=== PATIENT | male | born 1965 | race Caucasian/White ===

== ENCOUNTER → 2023-11-25 06:22 | Day surgery (SDC) | payer OTHER, SELFPAY | LOC: GI 06:22 | PROVIDERS: ATTENDING PHYSICIAN Internal Medicine Gastroenterology | DX: Z12.11 Encounter for screening for malignant neoplasm of colon (principal); K57.30 Diverticulosis of large intestine without perforation or abscess without bleeding; K22.70 Barrett's esophagus without dysplasia; K44.9 Diaphragmatic hernia without obstruction or gangrene; R12 Heartburn; Z80.0 Family history of malignant neoplasm of digestive organs; Z83.719 Family history of colon polyps, unspecified | CPT/HCPCS: 43239; G0105; 88305 ==

== ENCOUNTER 2024-10-20 16:07 | Inpatient (IN) | payer OTHER, SELFPAY ==
[2024-10-20] VITALS (9 sets, daily range): BP systolic 100–128; BP diastolic 57–83; BMI 35.5; BMI 34.9
[2024-10-20 12:27] LABS: % Basophils 0.5 % (0-2); % Immature Granulocytes 0.4 % (0-0.5); % Lymphocytes 17.3 % (20.5-51.1); % Monocytes 13.2 % (1.7-9.3); % Neutrophils 68.6 % (42.2-75.2); Absolute Lymphocytes 1.3 10^3/uL (1.2-3.4); Hematocrit 46.4 % (39.0-52.0); Hemoglobin 16.3 g/dL (13.0-18.0); Mean Corp Hgb Conc. 35.1 g/dL (33.0-37.0); Mean Corpuscular Hgb 29.4 pg (27.0-31.0); Mean Corpuscular Volume 83.6 fL (80.0-94.0); Nucleated Red Blood Cells % 0 % (-); Platelet Count 244 10^3/uL (130-400); Red Blood Cell Count 5.55 10^6/uL (4.70-6.10); Red Cell Dist. Width 12.7 % (11.5-14.5); White Blood Cell Count 7.3 10^3/uL (4.8-10.8)
[2024-10-20 12:38] LABS: ALT (SGPT) 47 U/L (0-50); AST (SGOT) 47 U/L (17-59); Albumin 4.4 g/dl (3.5-5.0); Alkaline Phosphatase 60 U/L (38-126); Blood Urea Nitrogen 42 mg/dl (9-20); Calcium 9.3 mg/dl (8.4-10.2); Carbon Dioxide 24 mmol/L (22-30); Chloride 94 mmol/L (98-107); Glucose 120 mg/dl (70-99); Lipase 109 U/L (23-300); Potassium 3.7 mmol/L (3.5-5.1); Sodium 133 mmol/L (135-145); Total Bilirubin 1.7 mg/dl (0.2-1.3); Total Protein 7.7 g/dl (6.3-8.2); eGFR 32.31
--- NOTE | 2024-10-20 13:22 | ED.GENMED ---
History of Present Illness
General
Chief Complaint: Abdominal Symptoms
Source: patient
Exam Limitations: none
Time Seen by Provider: 10/20/24 13:06
History of Present Illness
History of Present Illness:
59yoM with a history of hypertension and Miller's esophagus presenting for evaluation of flu-like symptoms. Symptoms began 3 days ago. He reports chills, a head cold, and diarrhea. He took a home COVID test at symptom onset which was faintly
positive. He called his PCP the next day and was started on Paxlovid. He reports diarrhea every 10-15 minutes up until this morning. Now diarrhea seems to be improving. He also was experiencing some abdominal discomfort in his RLQ which has since
improved. He feels very dehydrated and has not been eating much. Urination has been normal. He denies any fevers, chest pain, shortness of breath, vomiting. No recent travel or recent antibiotics.
Past History
Past History
ED Past Medical History: Other
ED Past Surgical History: Negative Cardiac
Social History
Tobacco: Non-smoker
Alcohol: Occasional
Drug: None
Personal:
Living: other (With girlfriend)
Employment: Employed
Family History
Family History: CAD and Cancer
Phy Exam
General Physical Exam
General Presentation: well appearing and no apparent distress
General age: appears stated age
General Skin: warm and dry
General Habitus: normal
General Mental: alert
General Hydration: appears well hydrated
ENT Exam
ENT Exam: normocephalic
Cardiovascular Exam
Cardiovascular Exam: regular rate/rhythm and no murmur
Pulmonary Exam
Pulmonary Exam: lungs clear, no respiratory distress, no rales, no crackles, no rhonchi and no wheezing
Gastrointestinal Exam
Gastrointestinal Exam: soft, non distended and other (Minimal tenderness in RLQ. Abdomen soft, non-distended. No rebound or guarding. )
Neurological Exam
Neurological Exam: alert
[place] Coma Scale
Eye Opening: Spontaneous
Verbal Response: Oriented
Motor Response: Obeys Commands
GCS Total Score: 15
Skin Exam
Skin Exam: normal color and warm/dry
Psychiatric Exam
Psychiatric Exam: normal mood/affect
Course
Orders/Labs/Results
Orders:
Orders
10/20/24 12:13
Complete Blood Count/With Diff Urgent
Comprehensive Metabolic Panel Urgent
Lipase Urgent
Magnesium Urgent
Comment: ADD ON
10/20/24 13:10
Add On- LAB Urgent
Tests Added?: magnesium
10/20/24 13:19
CDIFF [C difficile Antigen & Toxins] Urgent
[place] Source: Feces/Stool
Specimen Description:
Norovirus by PCR Urgent
[place] Source: Feces/Stool
Specimen Description:
Stool Culture Urgent
[place] Source: Feces/Stool
Specimen Description:
10/20/24 13:20
CT Abd/pel Without Iv Or Oral Urgent
Comment:
Reason For Exam: RLQ pain, diarrhea
Urinalysis Reflex To Culture Urgent
0.9% Sodium Chloride 1000 ml [Nss] 1,000 ml IV BOLUS
10/20/24 13:46
COVID-19 Antigen Urgent
Source: Nasal Swab
Influenza A+B Rapid Molecular Urgent
[place] Source: Nasal Swab
Specimen Description:
Abnormal Lab Results
10/20/24
12:13
Absolute Monos (auto) 1.0 H 10^3/uL
(0.1-0.6)
Lymphocytes % 17.3 L %
(20.5-51.1)
Monocytes % 13.2 H %
(1.7-9.3)
Sodium 133 L mmol/L
(135-145)
Chloride 94 L mmol/L
(98-107)
BUN 42 H mg/dl
(9-20)
Creatinine 2.3 H mg/dL
(0.7-1.3)
Glucose 120 H mg/dl
(70-99)
Total Bilirubin 1.7 H mg/dl
(0.2-1.3)
10/20/24 12:13
10/20/24 12:13
Vital Signs
Initial and Last Documented VS:
Initial Vital Signs
Temp Pulse Resp BP Pulse Ox
98.6 F 97 16 128/83 99
10/20/24 12:07 10/20/24 12:07 10/20/24 12:07 10/20/24 12:07 10/20/24 12:07
Last Documented Vital Signs
Temp Pulse Resp BP Pulse Ox
97.8 F 80 19 127/70 95
10/20/24 13:15 10/20/24 14:15 10/20/24 14:15 10/20/24 14:00 10/20/24 14:15
MDM/Problems Addressed
Differential Diagnosis Includes:
59yoM here with flu-like symptoms x 3 days. C/o diarrhea, decreased appetite, chills, head cold. Home COVID test positive, currently on Paxlovid. Feels dehydrated. He is afebrile and hemodynamically stable. Oxygen saturation 99% on room air. He is
well appearing in no distress. Differential diagnosis includes but is not limited to: COVID, influenza, other viral illness, dehydration, PARMJIT
Initial ED plan: Abdominal labs obtained in triage. Creatinine 2.3, which is up from 0.8 in 2021. Mild hyponatremia and hypochloremia noted. Magnesium, COVID/flu testing, stool studies, UA, and CT abdomen without contrast added. IV fluid bolus.
*Critical Care Note
Total Time (30-74mins, 75-104mins- exclusive of procedures): Not Applicable
Update Note
Update Note:
COVID test negative here. CT shows findings highly suggestive of distal ileitis and colitis, mostly likely infectious. Appendix appears normal. Stool studies pending. Will admit for PARMJIT.
ED Attending Note
-
Portions of this chart may have been created with voice recognition software.� Occasional wrong word or��sound alike� substitutions may have occurred due to the inherent limitations of voice recognition software.
Discharge Plan
Departure
Patient Disposition: Admit
Date of Disposition: 10/20/24
Time of Disposition: 14:40
Presentation/result/management discussed w/ accepting MD/DO: Hospitalist
Discharge Problem:
Acute kidney injury, Acute diarrhea, Colitis
Prescriptions:
No Action
lisinopril 20 mg tablet
20 mg PO DAILY
hydrochlorothiazide 25 mg tablet
25 mg PO DAILY
Paxlovid 300 mg (150 mg x 2)-100 mg tablets,dose pack
3 ea PO BID
omeprazole 20 mg Tablet,Delayed Release (Dr/Ec)
20 mg PO DAILY
Heart Chewables
1 chewable tab PO DAILY
Referrals:
Jabier Guillermo MD [Family Provider] -
Interventions
Interventions:
*Risk Screen - Suicide Last Done: 10/20/24 13:28
*General Assessment Last Done: 10/20/24 13:20
*Neglect/Abuse Screening Last Done: 10/20/24 13:22
*ED COVID-19 Vaccine History Last Done: 10/20/24 13:19
RJ-Iijfqu-Rhgfatnmey Assessment Last Done: 10/20/24 13:24
Discharge Date and Time
Print Language: SERBIAN
[2024-10-20] MEDS: NSS 1000 IV ×2 (13:33→17:28)
[2024-10-20 14:24] LABS: COVID-19 Antigen Negative (Negative)
--- NOTE | 2024-10-20 15:17 | HPS.HSE ---
Family Physician
-
Family Physician: Jabier Guillermo
Chief Complaint
-
Diarrhea
History of Present Illness
Patient is a 59 y/o male past medical history of hypertension and Miller's esophagus who presents with diarrhea. Patient reports about a month ago he was sick with a GI bug that caused a lot of vomiting. He notes he was better for a few weeks but
about 3 days ago developed recurrent GI symtpoms which was mostly diarrhea this time. He reports having diarrhea about every 10-15 min. He has been tolerating liquids but states he feels dehydrated. He reports poor appetite. He reports some
chills, but denies recorded fevers.
Medical History
Past Medical History
Past Medical History: Reports Other
Additional Past Medical History:
Essential Hypertension
Miller's Esophagus
Past Surgical History: Reports None
Social History
Tobacco: Non-smoker
Alcohol: Other (Rare)
Family History
Family History: Other (Mother: Colon [place])
Allergies / Home Medications
Allergies reflects when Allergies were last updated in [facility].
Home Medications with original date entered in [facility]
Allergy/Medication List:
Allergies
Allergy/AdvReac Type Severity Reaction Status Date / Time
No Known Allergies Allergy Verified 10/20/24 12:11
Home Medications
Heart Chewables 1 chewable tab PO DAILY 10/20/24
hydrochlorothiazide 25 mg tablet 25 mg PO DAILY 10/20/24
lisinopril 20 mg tablet 20 mg PO DAILY 10/20/24
nirmatrelvir 300 mg (150 mg x2)-ritonavir 100 mg tablet,dose pack (Paxlovid) 3 ea PO BID 10/20/24
omeprazole 20 mg tablet,delayed release 20 mg PO DAILY 10/20/24
Review of Systems
-
A 12 point ROS was completed and negative except as noted: Yes
Constitutional: Reports Chills; Denies Fever
Respiratory: Denies Cough or Trouble Breathing
Cardiac: Denies Chest Pain or Palpitations
Abdomen/GI: Reports See HPI
Physical Exam
Vital Signs
Vital Signs
Temp Pulse Resp BP Pulse Ox
97.8 F 80 19 127/70 95
10/20/24 13:15 10/20/24 14:15 10/20/24 14:15 10/20/24 14:00 10/20/24 14:15
Physical Exam
General: Comfortable and Conversant
HEENT: Anicteric and Moist mucous membranes
Respiratory: Clear and Non Labored Respirations
Cardiac: S1/S2 and Regular Rhythm
GI: Soft and Other (Mild discomfort on palpation of RLQ)
Rectal: Deferred by Provider
Musculoskeletal: No Clubbing, No Cyanosis and No Edema
Skin: Warm and Dry
Neuro: Awake, Alert, Oriented and Nonfocal/grossly intact
Psych: Calm
Laboratory Results
-
10/20/24 12:13
10/20/24 12:13
Laboratory Results
Total Bilirubin 1.7 mg/dl (0.2-1.3) H 10/20/24 12:13
AST 47 U/L (17-59) 10/20/24 12:13
ALT 47 U/L (0-50) 10/20/24 12:13
Alkaline Phosphatase 60 U/L (38-126) 10/20/24 12:13
Lipase 109 U/L (23-300) 10/20/24 12:13
Data Reviewed
-
CT Scan: Report Reviewed by me
Lab Data: Labs Reviewed by me
Impression/Plan
-
Acute Kidney Injury
-Hold lisinopril and HCTZ
-Continue IVFs
-Recheck labs in AM
Distal Ileitis / Colitis, suspect infectious mostly likely viral
-Check Norovirus and Stool Cultures
-Allow clears liquids
Positive Home COVID Test
-Patient placed on Paxlovid via PCP
-Negative COVID today
-Hold Paxlovid in setting of PARMJIT
Essential Hypertension
-Lisinopril and HCTZ on hold
-Monitor blood pressure
Miller's Esophagus
-Continue Protonix
DVT proph: SC Heparin
Code Status: Full Code
--- NOTE | 2024-10-20 16:07 | W.PN.UPDATE ---
Update Note
Progress Note Update
This is an addendum to the H&P written by Jessenia Espinoza on 10/20/2024.� Patient seen and examined independently with PA.
59-year-old male past medical history of Miller's esophagus, hypertension, presenting with diarrhea starting 3 days ago.
He had vomiting a month ago which resolved.� He has been having lingering cough for a month.� No fevers.
Home COVID test 3 days ago was positive.� He was started on Paxlovid 2 days ago.
COVID at the current time is negative.
Labs show PARMJIT with creatinine of 2.3.� CT abdomen pelvis shows distal ileitis/colitis most likely infectious.
Clear liquid diet.� Check stool studies.� IV fluids.� Hold Paxlovid, lisinopril, hydrochlorothiazide due to PARMJIT.� Hold off antibiotics at this time due to the lack of sepsis or fever.� Advance diet as tolerated.
It is possible the patient is COVID however COVID test may be negative due to suppression with Paxlovid.� However he is not hypoxic.
[2024-10-20 16:25] LABS: Urine Albumin 2+ (Neg - Trace); Urine Bilirubin Negative (Negative); Urine Character Clear (Clear); Urine Color Amber; Urine Glucose Negative (Negative); Urine Ketone Negative (Negative); Urine Leukocyte Negative (Negative); Urine Nitrite Negative (Negative); Urine Occult Blood 3+ (Negative); Urine Urobilinogen Negative (Neg - 1+)
[2024-10-20 17:41] LABS: Urine Squamous Cell 0-2 /LPF (Few)
[2024-10-20 17:42] LABS: Urine White Cell 0-2 /HPF (0-5)
[2024-10-20] MEDS: HEPARIN 5000 UNITS SC ×2 (18:34→23:26)
[2024-10-21] MEDS: NSS 1000 IV ×3 (02:45→21:49)
[2024-10-21 07:30] VITALS: BP 92/50
[2024-10-21 08:15] LABS: Hematocrit 40.7 % (39.0-52.0); Hemoglobin 14.2 g/dL (13.0-18.0); Mean Corp Hgb Conc. 34.9 g/dL (33.0-37.0); Mean Corpuscular Hgb 29.5 pg (27.0-31.0); Mean Corpuscular Volume 84.4 fL (80.0-94.0); Mean Platelet Volume 10.1 fL (7.4-10.4); Platelet Count 215 10^3/uL (130-400); Red Blood Cell Count 4.82 10^6/uL (4.70-6.10); Red Cell Dist. Width 12.6 % (11.5-14.5); White Blood Cell Count 5.7 10^3/uL (4.8-10.8)
[2024-10-21 08:32] LABS: Blood Urea Nitrogen 33 mg/dl (9-20); Calcium 8.6 mg/dl (8.4-10.2); Carbon Dioxide 24 mmol/L (22-30); Chloride 97 mmol/L (98-107); Estimated Creatinine Clearance 66 ml/min; Glucose 92 mg/dl (70-99); Potassium 3.4 mmol/L (3.5-5.1); Sodium 134 mmol/L (135-145); eGFR 58.62
[2024-10-21] MEDS: PROTONIX 40 MG PO (09:04)
[2024-10-21] MEDS: HEPARIN 5000 UNITS SC ×3 (09:04→23:02)
[2024-10-21] MEDS: KCL 270 MEQ IV (09:05)
[2024-10-21 10:00] LABS: Procalcitonin 1.32 ng/ml (0.0-0.25)
--- NOTE | 2024-10-21 11:47 | W.PN.HOSP.TC ---
Today's Communication/Plan
-
monitor vital signs see plan
Follow stool studies
GI evaluation
Continue with clears for now
Fluids
Monitor creatinine
Assessment / Plan
Assessment / Plan
General: Comfortable and Conversant
HEENT: Anicteric and Moist mucous membranes
Respiratory: Clear and Non Labored Respirations
Cardiac: S1/S2 and Regular Rhythm
GI: Soft and Other (Mild discomfort on palpation of RLQ)
Musculoskeletal: No Edema
Neuro: Awake, Alert, Oriented and Nonfocal/grossly intact
Psych: Calm
Pain diarrhea likely secondary to distal ileitis/colitis,, suspect infectious however cannot rule out inflammatory
Norovirus, C. difficile negative
Check stool culture, stool WBC
No prior history of colitis per patient, no recent antibiotics use
GI evaluation
Acute Kidney Injury
-Hold lisinopril and HCTZ
-Continue IVFs
Continue to monitor
Hyponatremia
Monitor
Hypokalemia
replete
Positive Home COVID Test
-Patient placed on Paxlovid via PCP
-Negative COVID today
-Hold Paxlovid in setting of PARMJIT
Essential Hypertension
-Lisinopril and HCTZ on hold
-Monitor blood pressure
Miller's Esophagus
-Continue Protonix
DVT proph: SC Heparin
Code Status: Full Code
Anticipated Discharge: 24 - 48 hours
Subjective/Interval History
-
Date of Service: October 21, 2024
Denies pain
Objective Data
-
Labs:
Laboratory Results
10/21/24
06:57
WBC 5.7
Hgb 14.2
Hct 40.7
Plt Count 215
Sodium 134 L
Potassium 3.4 L
Chloride 97 L
Carbon Dioxide 24
BUN 33 H
Creatinine 1.4 H
Glucose 92
Calcium 8.6
Vital Signs:
Vital Signs
Temp Pulse Resp BP Pulse Ox
98.7 F 74 24 92/50 99
10/21/24 07:30 10/21/24 07:30 10/21/24 07:30 10/21/24 07:30 10/21/24 07:30
I&O
10/20/24 10/21/24 10/22/24
06:59 06:59 06:59
Intake Total 120 / 120
Balance 120 / 120
--- NOTE | 2024-10-21 12:04 | CM ---
Addendum entered by Yris Keita 10/21/24 12:07:
PCP: Dr Guillermo
Pharmacy: [facility]
Plan: home no needs anticipated.
Original Note:
Patient seen bedside.
IA completed.
Patient lives with significant other in a 2 story home.
Independent prior to admission, works and drives.
No hx VN
Denies home care needs at this time.
--- NOTE | 2024-10-21 14:59 | CON.GI ---
Addendum entered and electronically signed by Silva Davenport MD 10/21/24 15:31:
Elevated total bilirubin with other LFTs being in normal range.
Will check total and direct bilirubin tomorrow.
Original Note:
Consultation
-
Date/Time Consultation Requested: 10/21/24
Date/Time Consultation Performed: 10/21/2024
Requesting Provider:
Performing Provider:
Reason for Consultation: Diarrhea
Medical History
Chief Complaint / HPI
Chief Complaint: Diarrhea
History of Present Illness:
59-year-old male with history of hypertension, Miller's esophagus presenting with complaints of diarrhea As per patient, Friday evening, he started with some vague discomfort in the abdomen and nausea followed by diarrhea. He did not eat anything
unusual or outside. Had multiple episodes of nonbloody loose watery stool , with nocturnal episodes. Also reports having chills without fevers. Had headaches, tested for COVID and as per patient, it was positive and was treated with Paxlovid for
a day and a half. He continued to have diarrhea and was not feeling well and came to the emergency room. In the ER, he was noted to have acute renal insufficiency with a creatinine of 2.3,hyponatremia and hypokalemia. COVID test was negative. As
per patient, flu testing was negative as well. Stool for C. difficile and norovirus negative, cultures pending. CT scan of the abdomen and pelvis was done without contrast, there was evidence of distal ileitis and colitis from the cecum to the
left transverse colon. Fatty liver noted.
Prior to this episode, patient denies any abdominal pain, nausea or vomiting. He has history of long segment Miller's esophagus on endoscopy in January 2024, currently on pantoprazole daily without any acid reflux symptoms. No trouble swallowing.
Bowel pattern usually is 1 formed stool a day without any constipation, diarrhea, blood or black stool.
Colonoscopy 2023 showing diverticulosis. He has family history of colon cancer in his mother and brother and sister both with polyps.
Past Medical History
Past Medical History: HTN and Other (Miller's esophagus)
Past Surgical History: None
Social History
Tobacco: Non-Smoker
Alcohol: None
Family History
Family History: Other (Mother-colon cancer, brother and sister with colon polyps)
Allergies / Home Medications
Allergy/AdvReac Type Severity Reaction Status Date / Time
No Known Allergies Allergy Verified 10/20/24 12:11
�Medication �Instructions �Recorded
Heart Chewables 1 chewable tab PO DAILY Supplement 10/20/24
hydrochlorothiazide 25 mg tablet 25 mg PO DAILY Blood Pressure 10/20/24
lisinopril 20 mg tablet 20 mg PO DAILY Blood Pressure 10/20/24
nirmatrelvir 300 mg (150 mg 3 ea PO BID covid-19 10/20/24
x2)-ritonavir 100 mg tablet,dose
pack (Paxlovid)
omeprazole 20 mg tablet,delayed 20 mg PO DAILY Gastrointestinal 10/20/24
release Issue
Review of Systems
-
Neurological: Reports Headache
Vital Signs
Temp Pulse Resp BP Pulse Ox
98.7 F 74 24 92/50 99
10/21/24 07:30 10/21/24 07:30 10/21/24 07:30 10/21/24 07:30 10/21/24 08:48
Physical Exam
Exam
HEENT: Normocephalic
Cardiac: S1/S2 and Regular Rhythm
GI: Soft, Non Tender and Non Distended
Neuro: Awake, Oriented and AO x 3
Results
WBC 5.7 10^3/uL (4.8-10.8) 10/21/24 06:57
Hgb 14.2 g/dL (13.0-18.0) 10/21/24 06:57
Hct 40.7 % (39.0-52.0) 10/21/24 06:57
MCV 84.4 fL (80.0-94.0) 10/21/24 06:57
Plt Count 215 10^3/uL (130-400) 10/21/24 06:57
Absolute Neuts (auto) 5.0 10^3/uL (1.4-6.5) 10/20/24 12:13
Sodium 134 mmol/L (135-145) L 10/21/24 06:57
Potassium 3.4 mmol/L (3.5-5.1) L 10/21/24 06:57
Chloride 97 mmol/L (98-107) L 10/21/24 06:57
Carbon Dioxide 24 mmol/L (22-30) 10/21/24 06:57
BUN 33 mg/dl (9-20) H 10/21/24 06:57
Creatinine 1.4 mg/dL (0.7-1.3) H 10/21/24 06:57
Calcium 8.6 mg/dl (8.4-10.2) 10/21/24 06:57
Total Bilirubin 1.7 mg/dl (0.2-1.3) H 10/20/24 12:13
AST 47 U/L (17-59) 10/20/24 12:13
ALT 47 U/L (0-50) 10/20/24 12:13
Alkaline Phosphatase 60 U/L (38-126) 10/20/24 12:13
Lipase 109 U/L (23-300) 10/20/24 12:13
Diagnostic Image Results:
Prior GI Procedures:
EGD: 11/25/23 ()- Jennings-colored mucosa suspicious for long-segment Miller's esophagus. Biopsies showing IM.
- Medium-sized hiatal hernia.
Colonoscopy: 11/25/23-
Assessment / Plan
-
59-year-old male with history of hypertension, Miller's esophagus presenting with complaints of diarrhea, nonbloody and multiple episodes since Friday, no sick contacts or eating out, associated PARMJIT with hyponatremia and hypokalemia, CT scan of
the abdomen and pelvis with without contrast showing some terminal ileitis and right-sided colitis.
-Significant diarrhea causing electrolyte abnormalities and PARMJIT, stool studies negative for C. difficile and norovirus and cultures pending and CAT scan showing right-sided colitis
Rule out infectious colitis, less likely inflammatory given normal colonoscopy in November 2023 and no symptoms prior to this.
Will check stool white cells as well.
Conservative management, currently on clear liquid diet, advance as tolerated once diarrhea improves.
Monitor electrolytes and replete as needed.
Continue IV hydration, creatinine is improving.
If symptoms persist, then will consider colonoscopy.
-Long segment Miller's esophagus, continue Protonix 40 mg daily.
Follow-up with her as outpatient.
-
-
Thank you for consultation and allowing me to participate in the patient's care. Please call the marketing automation specialist GI physician during the after hours with any questions or concerns.
[2024-10-21 15:00] VITALS: BP 139/77
--- NOTE | 2024-10-21 18:10 | PTCARENOTE ---
assisted patient with hair wash in bathroom .
[2024-10-21 23:00] VITALS: BP 108/58
[2024-10-22] MEDS: NSS 1000 IV ×3 (06:00→22:23)
[2024-10-22 07:30] VITALS: BP 120/67
[2024-10-22 08:38] LABS: Hematocrit 38.1 % (39.0-52.0); Hemoglobin 13.4 g/dL (13.0-18.0); Mean Corp Hgb Conc. 35.2 g/dL (33.0-37.0); Mean Corpuscular Hgb 29.8 pg (27.0-31.0); Mean Corpuscular Volume 84.7 fL (80.0-94.0); Mean Platelet Volume 9.9 fL (7.4-10.4); Platelet Count 200 10^3/uL (130-400); Red Cell Dist. Width 12.8 % (11.5-14.5); White Blood Cell Count 4.7 10^3/uL (4.8-10.8)
[2024-10-22] MEDS: PROTONIX 40 MG PO (09:02)
[2024-10-22] MEDS: HEPARIN 5000 UNITS SC ×2 (09:02→17:34)
[2024-10-22 09:04] LABS: ALT (SGPT) 73 U/L (0-50); AST (SGOT) 66 U/L (17-59); Albumin 3.5 g/dl (3.5-5.0); Alkaline Phosphatase 55 U/L (38-126); Blood Urea Nitrogen 17 mg/dl (9-20); Calcium 8.4 mg/dl (8.4-10.2); Carbon Dioxide 24 mmol/L (22-30); Chloride 101 mmol/L (98-107); Direct Bilirubin 0.2 mg/dl (0.0-0.4); Estimated Creatinine Clearance 77 ml/min; Glucose 83 mg/dl (70-99); Potassium 3.6 mmol/L (3.5-5.1); Sodium 135 mmol/L (135-145); Total Bilirubin 1.2 mg/dl (0.2-1.3); eGFR > 60.00
[2024-10-22 09:48] LABS: % Basophils 0.6 % (0-2); % Eosinophils 0.9 % (0-6); % Immature Granulocytes 0.6 % (0-0.5); % Lymphocytes 24.7 % (20.5-51.1); % Monocytes 17.1 % (1.7-9.3); % Neutrophils 56.1 % (42.2-75.2); Absolute Lymphocytes 1.2 10^3/uL (1.2-3.4); Absolute Monocytes 0.8 10^3/uL (0.1-0.6); Absolute Neutrophils 2.6 10^3/uL (1.4-6.5); Nucleated Red Blood Cells % 0 % (-)
--- NOTE | 2024-10-22 13:16 | W.PN.HOSP.TC ---
Today's Communication/Plan
-
Monitor vital signs see plan
Continue to monitor creatinine
Advance diet to full's
Monitor diarrhea
Awaiting stool studies
Assessment / Plan
Assessment / Plan
General: Comfortable and Conversant
HEENT: Anicteric and Moist mucous membranes
Respiratory: Clear and Non Labored Respirations
Cardiac: S1/S2 and Regular Rhythm
GI: Soft and Other (Mild discomfort on palpation of RLQ)
Musculoskeletal: No Edema
Neuro: Awake, Alert, Oriented and Nonfocal/grossly intact
Psych: Calm
Pain diarrhea likely secondary to distal ileitis/colitis,, suspect infectious however cannot rule out inflammatory
Norovirus, C. difficile negative
Check stool culture, stool WBC pending
No prior history of colitis per patient, no recent antibiotics use
GI following
Advance diet to fulls
Acute Kidney Injury
Improving
-Hold lisinopril and HCTZ
-Continue IVFs
Continue to monitor
Elevated LFTs
Monitor
Hyponatremia
Monitor
Hypokalemia
replete
Positive Home COVID Test
COVID negative here
-Patient placed on Paxlovid via PCP
-Negative COVID today
-Hold Paxlovid in setting of PARMJIT
Essential Hypertension
-Lisinopril and HCTZ on hold
-Monitor blood pressure
Miller's Esophagus
-Continue Protonix
DVT proph: SC Heparin
Code Status: Full Code
Anticipated Discharge: Within 24 hours
Subjective/Interval History
-
Date of Service: October 22, 2024
Denies nausea
Objective Data
-
Labs:
Laboratory Results
10/22/24
07:06
WBC 4.7 L
Hgb 13.4
Hct 38.1 L
Plt Count 200
Sodium 135
Potassium 3.6
Chloride 101
Carbon Dioxide 24
BUN 17
Creatinine 1.2
Glucose 83
Calcium 8.4
Total Bilirubin 1.2
AST 66 H
ALT 73 H
Alkaline Phosphatase 55
Vital Signs:
Vital Signs
Temp Pulse Resp BP Pulse Ox
97.8 F 71 20 120/67 99
10/22/24 07:30 10/22/24 07:30 10/22/24 07:30 10/22/24 07:30 10/22/24 08:30
I&O
10/21/24 10/22/24 10/23/24
06:59 06:59 06:59
Intake Total 120 / 120 720 / 720
Balance 120 / 120 720 / 720
--- NOTE | 2024-10-22 14:22 | W.PN.GI.CBS2 ---
Today's Communication / Plan
-
trial of BRAT, monitor BM
Assessment / Plan
-
59-year-old male with history of hypertension, Miller's esophagus presenting with complaints of diarrhea, nonbloody and multiple episodes since Friday, no sick contacts or eating out, associated PARMJIT with hyponatremia and hypokalemia, CT scan of
the abdomen and pelvis with without contrast showing some terminal ileitis and right-sided colitis.
Most likely infectious diarrhea. ? COVID (had faint positive outpatient nevative here).
- Trial of BRAT diet
- Monitor BM
- If no better plan cscope friday
- Monitor lytes/cr
- stool all negative will check ova and parasites as well
Subjective
Subjective
Date of Service: October 22, 2024
patient feeling improved
diarrhea was q15-20 min now only 4 bm today
nausea only prior to bm
tolerating clears
Objective
Data Reviewed
Laboratory Data:
Laboratory Results
10/22/24 07:06
10/22/24 07:06
Laboratory Results
Magnesium 2.0 mg/dl (1.6-2.3) 10/20/24 12:13
Total Bilirubin 1.2 mg/dl (0.2-1.3) 10/22/24 07:06
AST 66 U/L (17-59) H 10/22/24 07:06
ALT 73 U/L (0-50) H 10/22/24 07:06
Alkaline Phosphatase 55 U/L (38-126) 10/22/24 07:06
Lipase 109 U/L (23-300) 10/20/24 12:13
Vital Signs and I&O:
Vital Signs
Temp Pulse Resp BP Pulse Ox
97.8 F 71 20 120/67 99
10/22/24 07:30 10/22/24 07:30 10/22/24 07:30 10/22/24 07:30 10/22/24 08:30
I&O
10/21/24 10/22/24 10/23/24
06:59 06:59 06:59
Intake Total 120 / 120 720 / 720
Balance 120 / 120 720 / 720
Physical Exam
Physical Exam
HEENT: Anicteric
Cardiology: Normal Sinus Rhythm
Pulmonary: Clear
GI: Non Distended and Non Tender
[2024-10-22 15:00] VITALS: BP 120/60
[2024-10-22 23:30] VITALS: BP 113/54
[2024-10-23] MEDS: HEPARIN 5000 UNITS SC ×2 (00:49→07:48)
[2024-10-23] MEDS: PROTONIX 40 MG PO (07:48)
[2024-10-23 07:50] VITALS: BP 131/77
[2024-10-23 10:30] LABS: Hematocrit 37.7 % (39.0-52.0); Hemoglobin 13.1 g/dL (13.0-18.0); Mean Corp Hgb Conc. 34.7 g/dL (33.0-37.0); Mean Corpuscular Hgb 29.6 pg (27.0-31.0); Mean Corpuscular Volume 85.3 fL (80.0-94.0); Mean Platelet Volume 9.4 fL (7.4-10.4); Platelet Count 203 10^3/uL (130-400); Red Blood Cell Count 4.42 10^6/uL (4.70-6.10); Red Cell Dist. Width 12.6 % (11.5-14.5); White Blood Cell Count 4.9 10^3/uL (4.8-10.8)
[2024-10-23 10:41] LABS: % Basophils 0.6 % (0-2); % Eosinophils 1.2 % (0-6); % Immature Granulocytes 0.8 % (0-0.5); % Lymphocytes 26.4 % (20.5-51.1); % Monocytes 10.9 % (1.7-9.3); % Neutrophils 60.1 % (42.2-75.2); Absolute Eosinophils 0.1 10^3/uL (0-0.7); Absolute Lymphocytes 1.3 10^3/uL (1.2-3.4); Absolute Monocytes 0.5 10^3/uL (0.1-0.6); Absolute Neutrophils 2.9 10^3/uL (1.4-6.5); Nucleated Red Blood Cells % 0 % (-)
[2024-10-23 11:00] LABS: ALT (SGPT) 75 U/L (0-50); AST (SGOT) 55 U/L (17-59); Albumin 3.3 g/dl (3.5-5.0); Alkaline Phosphatase 54 U/L (38-126); Blood Urea Nitrogen 9 mg/dl (9-20); Calcium 8.6 mg/dl (8.4-10.2); Carbon Dioxide 25 mmol/L (22-30); Chloride 102 mmol/L (98-107); Estimated Creatinine Clearance 92 ml/min; Glucose 109 mg/dl (70-99); Potassium 3.9 mmol/L (3.5-5.1); Sodium 135 mmol/L (135-145); Total Bilirubin 1.1 mg/dl (0.2-1.3); Total Protein 5.9 g/dl (6.3-8.2); eGFR > 60.00
--- NOTE | 2024-10-23 12:47 | W.PN.HOSP.TC ---
Today's Communication/Plan
-
Monitor vital signs see plan
Continue with brat diet
Continue to monitor symptoms
Colonoscopy possibly Friday
Assessment / Plan
Assessment / Plan
General: Comfortable and Conversant
HEENT: Anicteric and Moist mucous membranes
Respiratory: Clear and Non Labored Respirations
Cardiac: S1/S2 and Regular Rhythm
GI: Soft and Other (Mild discomfort on palpation of RLQ)
Musculoskeletal: No Edema
Neuro: Awake, Alert, Oriented and Nonfocal/grossly intact
Psych: Calm
Pain diarrhea likely secondary to distal ileitis/colitis,, suspect infectious however cannot rule out inflammatory
Norovirus, C. difficile negative
Check stool culture pending, stool WBC high
No prior history of colitis per patient, no recent antibiotics use
GI following
now on BRAT diet; cscope possible friday
Acute Kidney Injury
Improving
-Hold lisinopril and HCTZ
-Continue IVFs
Continue to monitor
Elevated LFTs
Monitor
Hyponatremia
Monitor
Hypokalemia
Resolved
Positive Home COVID Test
COVID negative here
-Patient placed on Paxlovid via PCP
-Negative COVID on admission
-Hold further Paxlovid
Essential Hypertension
-Lisinopril and HCTZ on hold
-Monitor blood pressure
Miller's Esophagus
-Continue Protonix
DVT proph: SC Heparin
Code Status: Full Code
Anticipated Discharge: 24 - 48 hours
Subjective/Interval History
-
Date of Service: October 23, 2024
Denies nausea
Objective Data
-
Labs:
Laboratory Results
10/23/24
09:57
WBC 4.9
Hgb 13.1
Hct 37.7 L
Plt Count 203
Sodium 135
Potassium 3.9
Chloride 102
Carbon Dioxide 25
BUN 9
Creatinine 1.0
Glucose 109 H
Calcium 8.6
Total Bilirubin 1.1
AST 55
ALT 75 H
Alkaline Phosphatase 54
Vital Signs:
Vital Signs
Temp Pulse Resp BP Pulse Ox
97.6 F 71 16 131/77 99
10/23/24 07:50 10/23/24 07:50 10/23/24 07:50 10/23/24 07:50 10/23/24 07:50
I&O
10/22/24 10/23/24 10/24/24
06:59 06:59 06:59
Intake Total 720 / 720 1320 / 1320 240 / 240
Balance 720 / 720 1320 / 1320 240 / 240
--- NOTE | 2024-10-23 14:10 | W.PN.GI.CBS2 ---
Today's Communication / Plan
-
dc planning, lfts outpatient follow up, gi signing off
Assessment / Plan
-
59-year-old male with history of hypertension, Miller's esophagus presenting with complaints of diarrhea, nonbloody and multiple episodes since Friday, no sick contacts or eating out, associated PARMJIT with hyponatremia and hypokalemia, CT scan of
the abdomen and pelvis with without contrast showing some terminal ileitis and right-sided colitis. Mild LFT abnormality likely 2/2 infection.
Most likely infectious diarrhea. ? COVID (had faint positive outpatient negative here). Diarrhea resolved.
Stool studies negative.
- Low residue diet
- No need cscope outpatient since improved pt counseled to call our office if diarrhea comes back
- Lytes/Cr normal now
- Mild LFT likely 2/2 infection repeat 2 weeks outpatient
OK DC GI POV
Will sign off
D/w hospitalist
Pls call with ?sl
Subjective
Subjective
Date of Service: October 23, 2024
no further diarrhea feels well
Objective
Data Reviewed
Laboratory Data:
Laboratory Results
10/23/24 09:57
10/23/24 09:57
Laboratory Results
Magnesium 2.0 mg/dl (1.6-2.3) 10/20/24 12:13
Total Bilirubin 1.1 mg/dl (0.2-1.3) 10/23/24 09:57
AST 55 U/L (17-59) 10/23/24 09:57
ALT 75 U/L (0-50) H 10/23/24 09:57
Alkaline Phosphatase 54 U/L (38-126) 10/23/24 09:57
Lipase 109 U/L (23-300) 10/20/24 12:13
Vital Signs and I&O:
Vital Signs
Temp Pulse Resp BP Pulse Ox
97.6 F 71 16 131/77 99
10/23/24 07:50 10/23/24 07:50 10/23/24 07:50 10/23/24 07:50 10/23/24 07:50
I&O
10/22/24 10/23/24 10/24/24
06:59 06:59 06:59
Intake Total 720 / 720 1320 / 1320 720 / 720
Balance 720 / 720 1320 / 1320 720 / 720
Physical Exam
Physical Exam
HEENT: Anicteric
Cardiology: Normal Sinus Rhythm
Pulmonary: Clear
GI: Non Distended and Non Tender
--- NOTE | 2024-10-23 14:15 | W.DCSUMMARY ---
Discharge Summary
Discharge Data
Date of Admission: 10/20/24
Date of Discharge: 10/23/24
-
Pending Results: No
Hospital Course
59-year-old male with past medical history of Miller's esophagus, essential hypertension came to the hospital with abdominal pain and diarrhea secondary to distal ileitis/colitis. Patient got stool studies which were negative. Stool WBC was high.
Patient was seen by gastroenterology throughout hospitalization and was initially started on liquid diet however once his symptoms continue to improve he was unable to tolerate regular diet prior to discharge. On this hospitalization he also had
acute kidney injury which was likely thought was secondary to dehydration from ongoing diarrhea. With fluid resuscitation his kidney function continue to improved. Per patient report he had faint positive home COVID test prior to coming to the
hospital however COVID was negative here in the hospital. Paxlovid was discontinued. He also had mild LFT elevation for which she was instructed to follow-up outpatient. Given his low normal blood pressure his lisinopril and hydrochlorothiazide
was held. On discharge he was instructed to resume these meds once his blood pressure goes up. Once his symptoms continue to improve and he was able to tolerate diet, he was then discharged home with instructions to follow-up with all his
physicians outpatient.
Discharge Plan
-
Patient Disposition: Home (Routine Discharge)
Discharge Diagnosis/Procedures: Abdominal pain and diarrhea likely secondary to distal ileitis/colitis
Acute kidney injury
Elevated LFTs
Diet: Low Residue
Activity: As tolerated
Additional Activity: Repeat liver function test outpatient with primary care provider next week
Driving Restrictions: As prior to admission
Referrals:
Jabier Guillermo MD [Family Provider] - in less than 1 week
Silva Davenport MD [Active] -
Prescriptions:
Continued
omeprazole 20 mg Tablet,Delayed Release (Dr/Ec)
20 mg PO DAILY
Heart Chewables
1 chewable tab PO DAILY
Held
lisinopril 20 mg tablet
20 mg PO DAILY
Hold Instructions: Restart when blood pressure greater than 140/90
hydrochlorothiazide 25 mg tablet
25 mg PO DAILY
Hold Instructions: Restart when blood pressure greater than 140/90
Discontinued
Paxlovid 300 mg (150 mg x 2)-100 mg tablets,dose pack
3 ea PO BID
Discharge Orders:
Discharge Patient (As Directed); Ordered 10/23/24
Ordered By: Candelario Godfrey
Discharge Date and Time
Discharge Date/Time: 10/23/24 16:40
Print Language: MAORI
--- NOTE | 2024-10-23 14:58 | CM ---
CM reviewed chart, patient seen bedside, for discharge today. Patient reports his significant other will provide transportation home. Patient denies needs from CM. CM will continue to follow for all discharge planning needs.
Plan; home no needs.
[2024-10-23 15:41] VITALS: BP 148/71
== END 2024-10-23 16:40 | disposition home or self-care (01) | DRG 682 ==
LOC: 4 WEST ACU 16:07
PROVIDERS: Physician Assistant; Physician Assistant Medical; Student in an Organized Health Care Education/Training Program; ADMITTING PHYSICIAN Hospitalist; ATTENDING PHYSICIAN Internal Medicine; CONSULT PHYSICIAN Internal Medicine Gastroenterology; EMERGENCY PHYSICIAN Student in an Organized Health Care Education/Training Program; FAMILY PHYSICIAN Family Medicine
DX: N17.9 Acute kidney failure, unspecified (principal); U07.1 COVID-19; E87.1 Hypo-osmolality and hyponatremia; K52.9 Noninfective gastroenteritis and colitis, unspecified; I10 Essential (primary) hypertension; K22.70 Barrett's esophagus without dysplasia; E87.6 Hypokalemia
CPT/HCPCS: 74176; 80048; 80053; 81003; 81015; 82248; 83690; 83735; 84145; 85025; 85027; 87045; 87046; 87324; 87328; 87329; 87427; 87449; 87502; 87798; 87811; 89055; 96360; 99284

== ENCOUNTER 2025-08-27 07:04 | Emergency (ER) | payer OTHER, SELFPAY ==
[2025-08-27 07:10] VITALS: BP 154/91
[2025-08-27 07:38] LABS: COVID-19 Antigen Negative (Negative)
--- NOTE | 2025-08-27 08:50 | EDRN ---
Wyatt Acosta in room w/ pt at this time.
--- NOTE | 2025-08-27 09:03 | ED.GENMED ---
History of Present Illness
General
Chief Complaint: Throat Problem
Time Seen by Provider: 08/27/25 08:52
History of Present Illness
History of Present Illness:
60-year-old male presents to the emergency department for evaluation of sore throat and postnasal drip this morning. Reports mild nasal congestion and coughing over the past 3 days. No fevers or chills. No dysphagia. No nausea vomiting or
diarrhea. No ill contacts at home.
Past History
Past History
ED Past Medical History: Other
ED Past Surgical History: Negative Cardiac
Social History
Tobacco: Non-smoker
Alcohol: Occasional
Drug: None
Personal:
Living: other (With girlfriend)
Employment: Employed
Family History
Family History: CAD and Cancer
Review of Systems
Review of Systems
Allergies reviewed?: Yes
All Other Systems: ROS reviewed and negative except as documented in HPI and ROS
Phy Exam
Physical Exam
Physical Exam:
GEN: Well appearing, NAD, WDWN
HEENT: Oral mucosa moist, no scleral icterus. Mild tonsillar hypertrophy without exudates or overt erythema. No tonsillar or cervical adenopathy.
Cardiac: Regular rate and rhythm, no murmur
Lung: No respiratory distress, no tachypnea, clear
MSK: No gross deformity or injuries
Skin: Good color, no pallor or jaundice, no rashes
Neuro: AO x3, moves all extremities freely
Psych: Calm, cooperative
Course
Orders/Labs/Results
Orders:
Orders
08/27/25 07:17
COVID-19 Antigen Urgent
Source: Nasal Swab
INF RAPID [Influenza A+B Rapid Molecular] Urgent
[place] Source: Nasal Swab
Specimen Description:
Date Specimen was Collected: 08/27/25
Time Specimen was Collected: 07:16
Rapid Strep Group A Urgent
[place] Source: Throat/Pharynx
Specimen Description:
Date Specimen was Collected: 08/27/25
Time Specimen was Collected: 07:16
08/27/25 09:03
Dexamethasone Pf [Decadron] 10 mg PO NOW STA
Vital Signs
Initial and Last Documented VS:
Initial Vital Signs
Temp Pulse Resp BP Pulse Ox
97.4 F 79 18 154/91 96
08/27/25 07:10 08/27/25 07:10 08/27/25 07:10 08/27/25 07:10 08/27/25 07:10
Last Documented Vital Signs
Temp Pulse Resp BP Pulse Ox
97.4 F 93 16 141/91 97
08/27/25 07:10 08/27/25 09:25 08/27/25 09:25 08/27/25 09:25 08/27/25 09:25
MDM/Problems Addressed
MDM/Problems Addressed:
Likely self-limited viral syndrome, rapid viral strep testing negative. Single dose of steroids given due to tonsillar hypertrophy, otherwise supportive care discussed
*Pulse Oximetry
SaO2: 96
Patient hypoxic: no
*Critical Care Note
Total Time (30-74mins, 75-104mins- exclusive of procedures): Not Applicable
ED Attending Note
-
Portions of this chart may have been created with voice recognition software.� Occasional wrong word or��sound alike� substitutions may have occurred due to the inherent limitations of voice recognition software.
Discharge Plan
Departure
Patient Disposition: Home (Routine Discharge)
Date of Disposition: 08/27/25
Time of Disposition: 09:05
Patient with high blood pressure during this ER visit?: No
Discharge Problem:
Acute viral pharyngitis
Instructions: Sore Throat, Adult (DC)
Prescriptions:
No Action
lisinopril 20 mg tablet
20 mg PO DAILY
hydrochlorothiazide 25 mg tablet
25 mg PO DAILY
omeprazole 20 mg Tablet,Delayed Release (Dr/Ec)
20 mg PO DAILY
Heart Chewables
1 chewable tab PO DAILY
Referrals:
Jabier Guillermo MD [Family Provider, Family Practice]
Interventions
Interventions:
*General Assessment Last Done: 08/27/25 09:21
*Neglect/Abuse Screening Last Done: 08/27/25 09:21
*ED COVID-19 Vaccine History Last Done: 08/27/25 09:21
*ED Influenza Vaccine History Last Done: 08/27/25 09:21
[facility] Fall Risk Assessment Tool Last Done: 08/27/25 09:21
*Risk Screen - Suicide (C-SSRS) Last Done: 08/27/25 09:21
*Nursing Disposition Last Done: 08/27/25 09:30
ED-EENT Assessment Last Done: 08/27/25 09:23
ED- Pulmonary Assessment Last Done: 08/27/25 09:22
Discharge Date and Time
Discharge Date/Time: 08/27/25 09:30
Print Language: GREEK
[2025-08-27 09:21] VITALS: BMI 36.1
[2025-08-27 09:25] VITALS: BP 141/91
--- NOTE | 2025-08-27 09:29 | EDRN ---
Pt has not taken AM BP med today. Pt will take when gets home
== END 2025-08-27 09:30 | disposition home or self-care (01) ==
LOC: EMR 07:04
PROVIDERS: Physician Assistant; EMERGENCY PHYSICIAN Emergency Medicine; FAMILY PHYSICIAN Family Medicine
DX: J02.8 Acute pharyngitis due to other specified organisms (principal); J35.1 Hypertrophy of tonsils
CPT/HCPCS: 99283; 87070; 87502; 87811; 87880